=== PATIENT | female | born 1980 | race Caucasian/White ===

== ENCOUNTER 2020-10-04 17:40 | Emergency (ER) | payer MEDICAID ==
[~2020-10-04] VITALS: Ht 165.1 cm; Wt 59.0 kg
[2020-10-04 19:45] VITALS: BP 116/60
== END 2020-10-04 19:45 | disposition home or self-care (01) ==
LOC: ER 17:40
DX: F45.8 Other somatoform disorders (principal); F50.89 Other specified eating disorder
CPT/HCPCS: 99281

== ENCOUNTER 2020-10-05 22:14 | Emergency (ER) | payer MEDICAID ==
[~2020-10-05] VITALS: Ht 165.1 cm; Wt 59.0 kg
[2020-10-05 23:30] VITALS: BP 112/63
[2020-10-06 00:13] LABS: BASOPHILS % 1.1 % (0.0-2.0); EOSINOPHILS % 1.7 % (0.0-5.0); HEMATOCRIT. 33.8 % (36.0-48.0); HEMOGLOBIN. 11.1 g/dL (12.0-16.0); LYMPHOCYTES % 39.7 % (20.0-50.0); MEAN CORPUSCULAR HEMOGLOBIN 24.9 pg (28.0-32.0); MEAN CORPUSCULAR VOLUME 76.1 fL (81.0-99.0); MONOCYTES % 5.9 % (2.0-8.0); NEUTROPHILS % 51.6 % (40.0-76.0); PLATELET 259 x1000/uL (130-400); RED BLOOD CELL COUNT 4.45 mill/uL (4.2-5.4); RED CELL DISTRIBUTION WIDTH 14.3 % (11.6-14.6)
[2020-10-06 00:20] LABS: CHLORIDE 108 mEq/L (98-107)
== END 2020-10-06 00:56 | disposition home or self-care (01) ==
LOC: ER 22:14
DX: R59.9 Enlarged lymph nodes, unspecified (principal)
CPT/HCPCS: 36415; 80053; 81025; 85025; 99283

== ENCOUNTER 2021-01-20 13:24 | Emergency (ER) | payer SELFPAY ==
[~2021-01-20] VITALS: Ht 165.1 cm; Wt 59.0 kg
[2021-01-20 13:34] VITALS: BP 147/72
== END 2021-01-20 16:22 | disposition home or self-care (01) ==
LOC: ER 13:24
DX: R22.0 Localized swelling, mass and lump, head (principal)
CPT/HCPCS: 99281

== ENCOUNTER 2022-09-07 21:44 | Emergency (ER) | payer MEDICAID ==
[~2022-09-07] VITALS: Ht 165.1 cm; Wt 57.0 kg
[2022-09-07 23:47] LABS: CHLORIDE 109 mEq/L (98-107)
[2022-09-07 23:48] LABS: EOSINOPHILS % 1.3 % (0.0-5.0); HEMATOCRIT. 28.7 % (36.0-48.0); HEMOGLOBIN. 9.1 g/dL (12.0-16.0); LYMPHOCYTES % 33.6 % (20.0-50.0); MEAN CORPUSCULAR HEMOGLOBIN 21.3 pg (28.0-32.0); MEAN CORPUSCULAR VOLUME 67.1 fL (81.0-99.0); MEAN PLATELET VOLUME 7.9 fl (7.4-10.4); MONOCYTES % 5.3 % (2.0-8.0); NEUTROPHILS % 58.8 % (40.0-76.0); PLATELET 328 x1000/uL (130-400); RED BLOOD CELL COUNT 4.28 mill/uL (4.2-5.4); RED CELL DISTRIBUTION WIDTH 16.2 % (11.6-14.6)
[2022-09-07 23:52] LABS: HCG SCREEN NEGATIVE
[2022-09-08 02:04] LABS: PLATELET ESTIMATE NORMAL
[2022-09-08 02:15] VITALS: BP 111/58
[2022-09-08] MEDS ORDERED: HYDROCODONE/ACETAMINOPHEN 5/325MG TABLET PO ONE (02:15)
[2022-09-08] MEDS ORDERED: IBUP-2029 MT (02:25)
== END 2022-09-08 02:59 | disposition home or self-care (01) ==
LOC: ER 22:00
DX: K80.20 Calculus of gallbladder without cholecystitis without obstruction (principal)
CPT/HCPCS: 36415; 76705; 80053; 84703; 85025; 93005; 99285